=== PATIENT | female | born 1995 | race African-American/Black ===

== ENCOUNTER → 2017-06-05 | Outpatient (CLI) | payer OTHER ==
[2017-06-06 15:19] LABS: CHLAMYDIA DNA AMPLIFICATION NEGATIVE (NEGATIVE); GC DNA AMPLIFICATION NEGATIVE (NEGATIVE)
[2017-06-07 11:06] LABS: HEPATITIS B SURFACE ANTIGEN NEGATIVE (NEGATIVE)
[2017-06-07 11:12] LABS: HEPATITIS B CORE ANTIBODY IGM NEGATIVE (NEGATIVE)
[2017-06-07 11:12] LABS: HEPATITIS C VIRUS ABY INDEX 0.2 INDEX (<0.8)
[2017-06-07 11:13] LABS: HIV 1&2 SCREEN CENTAUR NEGATIVE (NEGATIVE)
[2017-06-07 11:14] LABS: HEPATITIS A ANTIBODY IGM NEGATIVE (NEGATIVE)
== END ==
LOC: M SMT 15:43
DX: Z11.3 Encounter for screening for infections with a predominantly sexual mode of transmission (principal)
CPT/HCPCS: 87340

== ENCOUNTER → 2018-04-08 | Outpatient (REF) | payer OTHER ==
[2018-04-08 18:24] LABS: APPEARANCE, URINE CLEAR (CLEAR); BACTERIA, URINE AUTO NEGATIVE (NEGATIVE); BILIRUBIN, URINE AUTO NEGATIVE (NEGATIVE); BLOOD, URINE BLOOD NEGATIVE (NEGATIVE); COLOR, URINE YELLOW (YELLOW); GLUCOSE, URINE (UA) AUTO NEGATIVE (NEGATIVE); KETONE, URINE AUTO NEGATIVE (NEGATIVE); LEUKOCYTE ESTERASE, URINE AUTO NEGATIVE (NEGATIVE); NITRITE, URINE AUTO NEGATIVE (NEGATIVE); PROTEIN, URINE AUTO NEGATIVE (NEGATIVE); RBC, URINE AUTO 2 /HPF (0-3); SPECIFIC GRAVITY URINE AUTO 1.011 (1.002-1.035); SQUAMOUS EPITHELIAL CELL UR AU 2 /HPF (0-6); UROBILINOGEN, URINE AUTO 0.2 mg/dL (0.0-2.0); WBC, URINE AUTO 1 /HPF (0-3)
== END ==
LOC: M LAB REF 16:58
PROVIDERS: ATTEND Physician Assistant
DX: R30.0 Dysuria (principal)

== ENCOUNTER → 2018-04-11 | Outpatient (REF) | payer OTHER | LOC: M LAB REF 13:22 | PROVIDERS: ATTEND Advanced Practice Midwife | DX: N93.0 Postcoital and contact bleeding (principal); Z12.4 Encounter for screening for malignant neoplasm of cervix ==

== ENCOUNTER → 2018-04-28 | Outpatient (CLI) | payer OTHER ==
[2018-04-28 17:35] LABS: BASO % 0.5 % (0.0-1.0); EOS # 0.1 10^3/uL (0.0-0.50); EOS % 1.1 % (0.0-3.0); HEMATOCRIT 37.3 % (36.0-47.0); HEMOGLOBIN 11.4 g/dl (12.0-15.5); LYMPH # 2.7 10^3/uL (1.5-6.5); MEAN CORPUSCULAR HEMOGLOBIN 25.1 pg (27.0-33.0); MEAN CORPUSCULAR HGB CONC 30.6 g/dl (32.0-36.5); MEAN CORPUSCULAR VOLUME 82.2 fl (80.0-96.0); MONO # 0.6 10^3/uL (0.0-0.8); MONO % 8.4 % (0.0-5.0); NEUTROPHILS % 53.9 % (36.0-66.0); PLATELET COUNT, AUTOMATED 320 10^3/uL (150-450); RED BLOOD COUNT 4.54 10^6/uL (4.00-5.40); WHITE BLOOD COUNT 7.4 10^3/uL (4.0-10.0)
[2018-04-28 18:16] LABS: ALBUMIN 3.9 GM/DL (3.2-5.2); ALT/SGPT 25 U/L (12-78); BILIRUBIN,TOTAL 0.2 MG/DL (0.2-1.0); BLOOD UREA NITROGEN 10 MG/DL (7-18); CALCIUM LEVEL 8.6 MG/DL (8.5-10.1); CARBON DIOXIDE LEVEL 26 MEQ/L (21-32); CHLORIDE LEVEL 106 MEQ/L (98-107); CHOLESTEROL LEVEL 136 MG/DL (<200); CHOLESTEROL RISK RATIO 2.385 (<5); CREATININE FOR GFR 0.78 MG/DL (0.55-1.30); FOLATE 14.1 NG/ML; FREE T4 0.84 NG/DL (0.76-1.46); GLOMERULAR FILTRATION RATE > 60.0 (>60); GLUCOSE, FASTING 79 MG/DL (70-100); HDL CHOLESTEROL 57 MG/DL (>40); LDL CHOLESTEROL 69 MG/DL (<100); NON-HDL-C 79 MG/DL; POTASSIUM SERUM 4.5 MEQ/L (3.5-5.1); SODIUM LEVEL 138 MEQ/L (136-145); THYROID STIMULATING HORMONE 0.992 uIU/ML (0.358-3.740); TOTAL PROTEIN 7.7 GM/DL (6.4-8.2); TRIGLYCERIDES LEVEL 52 MG/DL (<150)
[2018-04-28 19:12] LABS: VITAMIN B12 LEVEL 392 PG/ML
== END ==
LOC: M LRY 15:06
PROVIDERS: ATTEND Physician Assistant
DX: F45.8 Other somatoform disorders (principal); E66.8 Other obesity; Z13.220 Encounter for screening for lipoid disorders; Z13.0 Encounter for screening for diseases of the blood and blood-forming organs and certain disorders involving the immune mechanism

== ENCOUNTER → 2018-10-30 | Outpatient (REF) | payer OTHER ==
[2018-10-30 20:16] LABS: CHLAMYDIA DNA AMPLIFICATION NEGATIVE (NEGATIVE); GC DNA AMPLIFICATION NEGATIVE (NEGATIVE)
== END ==
LOC: M LAB REF 17:16
PROVIDERS: ATTEND Advanced Practice Midwife
DX: N76.0 Acute vaginitis (principal)

== ENCOUNTER → 2018-12-11 | Outpatient (CLI) | payer OTHER ==
--- NOTE | 2018-12-11 10:49 | REP ---
Lumbar spine eight views including lateral views in flexion and extension: There are no comparison studies. Vertebral body heights, interspacing alignment are normal. There is no spondylolysis. There is no spondylolisthesis. There is no listhesis on the lateral views in flexion or extension. The facets, pedicles and sacroiliac articulations are unremarkable. There is an IUD in the pelvic midline. Impression: Essentially negative lumbar spine. Electronically Signed by Monster Abdi MD 12/11/2018 10:41 A
[2018-12-11 12:27] LABS: BLOOD UREA NITROGEN 10 MG/DL (7-18); CALCIUM LEVEL 8.6 MG/DL (8.5-10.1); CARBON DIOXIDE LEVEL 28 MEQ/L (21-32); CHLORIDE LEVEL 108 MEQ/L (98-107); CREATININE FOR GFR 0.83 MG/DL (0.55-1.30); FREE T4 0.83 NG/DL (0.76-1.46); GLOMERULAR FILTRATION RATE > 60.0 (>60); GLUCOSE, FASTING 88 MG/DL (70-100); POTASSIUM SERUM 3.9 MEQ/L (3.5-5.1); SODIUM LEVEL 140 MEQ/L (136-145)
[2018-12-11 12:34] LABS: HEMOGLOBIN A1c 6.1 %
== END ==
LOC: M LRY 09:15
PROVIDERS: ATTEND Physician Assistant
DX: M54.5 Low back pain (principal); F45.8 Other somatoform disorders; G56.03 Carpal tunnel syndrome, bilateral upper limbs

== ENCOUNTER → 2019-02-13 | Outpatient (REF) | payer OTHER ==
[2019-02-13 19:33] LABS: CHLAMYDIA DNA AMPLIFICATION NEGATIVE (NEGATIVE); GC DNA AMPLIFICATION NEGATIVE (NEGATIVE)
== END ==
LOC: M SFHCLERA 11:23
PROVIDERS: ATTEND Nurse Practitioner Family
DX: Z20.2 Contact with and (suspected) exposure to infections with a predominantly sexual mode of transmission (principal)
CPT/HCPCS: 81002; 81025; 87086; 87661; 96372; G0463; J0696

== ENCOUNTER → 2019-03-06 | Outpatient (REF) | payer OTHER | LOC: M SFHCLERA 14:53 | PROVIDERS: ATTEND Nurse Practitioner Family | DX: J02.9 Acute pharyngitis, unspecified (principal) ==

== ENCOUNTER → 2019-05-14 | Outpatient (REF) | payer OTHER ==
[2019-05-14 20:06] LABS: CHLAMYDIA DNA AMPLIFICATION NEGATIVE (NEGATIVE); GC DNA AMPLIFICATION NEGATIVE (NEGATIVE)
== END ==
LOC: M SFHCLERA 13:01
PROVIDERS: ATTEND Nurse Practitioner Family
DX: N89.8 Other specified noninflammatory disorders of vagina (principal)
CPT/HCPCS: 81002; 81025; 87070; 87077; 87086; 87661; G0463

== ENCOUNTER → 2019-08-11 | Outpatient (REF) | payer OTHER ==
[2019-08-12 11:54] LABS: AMORPHOUS SEDIMENT SMALL (NEGATIVE); APPEARANCE, URINE HAZY (CLEAR); BACTERIA, URINE AUTO 1+ (NEGATIVE); BILIRUBIN, URINE AUTO NEGATIVE (NEGATIVE); BLOOD, URINE BLOOD NEGATIVE (NEGATIVE); COLOR, URINE YELLOW (YELLOW); GLUCOSE, URINE (UA) AUTO NEGATIVE (NEGATIVE); KETONE, URINE AUTO NEGATIVE (NEGATIVE); LEUKOCYTE ESTERASE, URINE AUTO NEGATIVE (NEGATIVE); MUCUS, URINE SMALL (NEGATIVE); NITRITE, URINE AUTO POSITIVE (NEGATIVE); PROTEIN, URINE AUTO NEGATIVE (NEGATIVE); RBC, URINE AUTO 0 /HPF (0-3); SPECIFIC GRAVITY URINE AUTO 1.012 (1.002-1.035); SQUAMOUS EPITHELIAL CELL UR AU 0 /HPF (0-6); UROBILINOGEN, URINE AUTO 0.2 mg/dL (0.0-2.0); WBC, URINE AUTO 2 /HPF (0-3)
[2019-08-12 13:21] LABS: CHLAMYDIA DNA AMPLIFICATION NEGATIVE (NEGATIVE); GC DNA AMPLIFICATION NEGATIVE (NEGATIVE)
== END ==
LOC: M SFHCWAGY 10:05
PROVIDERS: ATTEND Obstetrics & Gynecology
DX: R30.0 Dysuria (principal)

== ENCOUNTER → 2019-08-13 | Outpatient (CLI) | payer OTHER ==
--- NOTE | 2019-08-14 04:32 | REP ---
Clinical: Dysmenorrhea. Technique: Transabdominal pelvic ultrasound using curved array transducer. Findings: Normal anteverted uterus measures 11.7 x 3.6 x 5.6 cm. Endometrial complex measures 4 mm thickness. The right ovary appears normal and measures 2.7 x 2.2 x 3.2 cm. Left ovary is not visualized. No pelvic fluid or adnexal mass lesion. Impression: Normal uterus and right ovary. Left ovary not visualized.
== END ==
LOC: M WHC 14:57
PROVIDERS: ATTEND Obstetrics & Gynecology
DX: N94.6 Dysmenorrhea, unspecified (principal)

== ENCOUNTER → 2020-02-10 | Outpatient (REF) | payer OTHER ==
[2020-02-10 17:19] LABS: HEMATOCRIT 35.6 % (36.0-47.0); HEMOGLOBIN 10.8 g/dl (12.0-15.5); MEAN CORPUSCULAR HEMOGLOBIN 24.5 pg (27.0-33.0); MEAN CORPUSCULAR HGB CONC 30.3 g/dl (32.0-36.5); MEAN CORPUSCULAR VOLUME 80.9 fl (80.0-96.0); PLATELET COUNT, AUTOMATED 304 10^3/uL (150-450); WHITE BLOOD COUNT 7.3 10^3/uL (4.0-10.0)
[2020-02-10 18:16] LABS: HEPATITIS C VIRUS ABY INDEX 0.1 INDEX (<0.8); HIV 1&2 SCREEN CENTAUR NEGATIVE (NEGATIVE)
== END ==
LOC: M PLALAB 15:40
PROVIDERS: ATTEND Obstetrics & Gynecology
DX: O34.211 Maternal care for low transverse scar from previous cesarean delivery (principal); Z3A.12 12 weeks gestation of pregnancy

== ENCOUNTER → 2020-03-11 | Outpatient (CLI) | payer OTHER | LOC: M WHC 10:56 | PROVIDERS: ATTEND Obstetrics & Gynecology | DX: Z36.89 Encounter for other specified antenatal screening (principal); Z3A.16 16 weeks gestation of pregnancy; Z53.9 Procedure and treatment not carried out, unspecified reason ==

== ENCOUNTER → 2020-03-25 | Outpatient (CLI) | payer OTHER ==
--- NOTE | 2020-03-27 17:58 | REP ---
INDICATION: ANATOMY COMPARISON: None. TECHNIQUE: Transabdominal obstetrical ultrasound with color Doppler evaluation. FINDINGS: Examination demonstrates a single live intrauterine in cephalic presentation. motion is identified by technologist. Placenta is noted anterior and grade 1 without evidence for placenta previa or abruption. Amniotic fluid volume is normal. Cervix measures 3.0 cm in length and appears closed.. Gestational age by LMP 18 weeks 3 days with PRINCE 08/23/2020. Gestational age by current measurements 18 weeks 5 days with PRINCE 08/21/2020. FHR equals 155 beats per minute. BPD: 4.1 cm 18 weeks 2 days HC: 15.4 cm 18 weeks 3 days AC: 12.6 cm 18 weeks 1 day FL: 2.9 cm 18 weeks 6 days HL: 2.9 cm 19 weeks 3 days HC/AC: 1.22 Estimated weight 243 grams (50thpercentile). Anatomical assessment demonstrates normal structures including cranium, choroid plexus, cavum, cerebellum/posterior fossa, lungs, four-chamber heart/ventricular outflow tracts, diaphragm, stomach, cord insertion/three-vessel cord, kidneys/bladder, spine, and extremities. IMPRESSION: Single live intrauterine in cephalic presentation demonstrating appropriate estimated weight and growth. Limited evaluation of the facial features (nose/lips). Remainder of the anatomical assessment is complete and normal. <Electronically signed by Refugio Raines > 03/27/20 [id number]
== END ==
LOC: M WHC 13:36
PROVIDERS: ATTEND Obstetrics & Gynecology
DX: Z36.9 Encounter for antenatal screening, unspecified (principal); Z3A.18 18 weeks gestation of pregnancy

== ENCOUNTER → 2020-04-06 | Outpatient (CLI) | payer OTHER | LOC: M WHC 16:31 | PROVIDERS: ATTEND Obstetrics & Gynecology | DX: Z36.89 Encounter for other specified antenatal screening (principal); Z3A.20 20 weeks gestation of pregnancy ==

== ENCOUNTER → 2020-04-21 | Outpatient (CLI) | payer OTHER ==
--- NOTE | 2020-04-21 12:04 | REP ---
INDICATION: F/U ANATOMY. COMPARISON: Comparison study is from 25 March 2020.. TECHNIQUE: Transabdominal obstetric sonography. FINDINGS: Scanning through the gravid uterus demonstrates a viable single intrauterine gestation in cephalic lie. motion is observed and heart rate is recorded at 161 beats per minute. A anterior placenta is seen, grade 1, without evidence of placenta previa. Closed cervical length is measured at 3.7 cm transabdominally. No extrauterine abnormality is observed. Amniotic fluid is subjectively normal. nose and lips were visualized today and appear normal.. Biometry chart: BPD 4.9 cm, 20 weeks 6 days Head circumference 19.9 cm, 22 weeks 1 day Abdominal circumference 17.6 cm, 22 weeks 3 days Femur length 4.2 cm, 23 weeks 6 days Humeral length 3.9 cm, 23 weeks 4 days HC AC ratio normal 1.13 Cephalic index 0.66 (0.70-0.86) Estimated weight 542 g, 1 lb 3 oz, 73rd percentile for 22 weeks 2 days IMPRESSION: Viable single intrauterine gestation at 22 weeks 4 days by today's composite sonographic criteria. PRINCE by today's sonography August 21, 2020. No complication identified. Expected gestational age estimate based on prior sonography is 22 weeks 2 days. PRINCE by prior sonography August 23, 2020. In conjunction with the prior study, anatomic survey is felt to be complete. <Electronically signed by Edgardo Damon > 04/21/20 1200
== END ==
LOC: M WHC 10:10
PROVIDERS: ATTEND Obstetrics & Gynecology
DX: Z34.92 Encounter for supervision of normal pregnancy, unspecified, second trimester (principal); Z3A.22 22 weeks gestation of pregnancy

== ENCOUNTER → 2020-06-20 | Outpatient (REF) | payer OTHER ==
[2020-06-20 13:45] LABS: HEMATOCRIT 32.8 % (36.0-47.0); HEMOGLOBIN 10.1 g/dl (12.0-15.5); MEAN CORPUSCULAR HEMOGLOBIN 25.2 pg (27.0-33.0); MEAN CORPUSCULAR HGB CONC 30.8 g/dl (32.0-36.5); MEAN CORPUSCULAR VOLUME 81.8 fl (80.0-96.0); PLATELET COUNT, AUTOMATED 218 10^3/uL (150-450); RED BLOOD COUNT 4.01 10^6/uL (4.00-5.40); WHITE BLOOD COUNT 7.8 10^3/uL (4.0-10.0)
== END ==
LOC: M PLALAB 09:42
PROVIDERS: ATTEND Obstetrics & Gynecology
DX: O34.211 Maternal care for low transverse scar from previous cesarean delivery (principal)
CPT/HCPCS: 36415; 82950; 85027; 86850; 86900; 86901; G0463

== ENCOUNTER → 2020-06-24 | Outpatient (CLI) | payer SELFPAY | LOC: M LABSMTC 10:20 | PROVIDERS: ATTEND Family Medicine | DX: Z11.52 Encounter for screening for COVID-19 (principal) ==

== ENCOUNTER 2020-08-16 07:30 | Inpatient (IN) | payer OTHER ==
[~2020-08-16] VITALS: Ht 162.6 cm; Wt 107.5 kg
[2020-08-30] MEDS ORDERED: ceFAZolin SOD 2 GM in IV 1 EA IV ONE (06:20)
[2020-08-30] MEDS ORDERED: BICITRA 30ML SOLN UDC PO ONE ×2 (06:20→09:00)
[2020-08-30 06:21] VITALS: BP 102/69
[2020-08-30] MEDS ORDERED: PRENTAB9 PO (06:39)
[2020-08-30 07:07] LABS: HEMATOCRIT 29.7 % (36.0-47.0); HEMOGLOBIN 9.1 g/dl (12.0-15.5); MEAN CORPUSCULAR HEMOGLOBIN 23.9 pg (27.0-33.0); MEAN CORPUSCULAR HGB CONC 30.6 g/dl (32.0-36.5); MEAN CORPUSCULAR VOLUME 78.2 fl (80.0-96.0); PLATELET COUNT, AUTOMATED 268 10^3/uL (150-450); WHITE BLOOD COUNT 8.7 10^3/uL (4.0-10.0)
[2020-08-30] MEDS ORDERED: MORPHINE PRES-FREE INJ 10 MG/10 ML VIAL (J2274) As Ordered ONE (07:18)
[2020-08-30] MEDS ORDERED: OXYTOCIN 30 UNITS IN 0.9% NaCl 500ML IV BAG (J2590) As Ordered ONE ×2 (07:19→09:29)
[2020-08-30] MEDS ORDERED: NALBUPHINE HCL 10 MG/ML AMP (J2300) IV PRN (07:56)
[2020-08-30] MEDS ORDERED: ONDANSETRON 4MG/2ML VIAL IV PRN ×3 (07:56→09:20)
[2020-08-30] MEDS ORDERED: NALOXONE INJ 0.4MG/1ML VIAL (J2310 PER 1MG) IV PRN ×2 (07:56)
[2020-08-30] MEDS ORDERED: METOCLOPRAMIDE INJ 10MG/2ML VIAL (J2765 PER 1) IV PRN ×2 (07:56→09:20)
[2020-08-30] MEDS ORDERED: LACTATED RINGER'S 1000 ML IV STA (07:59)
[2020-08-30] MEDS ORDERED: LR 1,000 ML IV SCH ×3 (08:00→09:20)
[2020-08-30] MEDS ORDERED: dexameTHASONE 4 MG/ML 1ML VIAL (J1100 PER 1MG) As Ordered ONE (08:17)
[2020-08-30] MEDS ORDERED: ONDANSETRON 4MG/2ML VIAL As Ordered ONE (08:17)
[2020-08-30] MEDS ORDERED: KETOROLAC 60MG 2ML VIAL As Ordered ONE (08:18)
[2020-08-30] MEDS ORDERED: PHENYLephrine 500MCG 5ML (100MCG/ML) SYRINGE As Ordered ONE (08:40)
[2020-08-30] MEDS ORDERED: PERCOCET 5MG/325MG TAB PO PRN (09:20)
[2020-08-30] MEDS ORDERED: SIMETHICONE 80MG CHEW TAB PO PRN (09:20)
[2020-08-30] MEDS ORDERED: MEASLES,MUMPS,RUBELLA VACCINE INJ (MMR-II) (90707) SC SCH (09:20)
[2020-08-30] MEDS ORDERED: RHOGAM 300 MCG (1500 IU) INJ (J2790) IM SCH (09:20)
[2020-08-30] MEDS ORDERED: OXYTOCIN DRIP 30 UNITS in IV 1 EA IV SCH (09:20)
[2020-08-30] MEDS ORDERED: DOCUSATE SODIUM 100MG CAPSULE PO PRN (09:20)
[2020-08-30] MEDS ORDERED: fentaNYL 100 MCG/2 ML INJECTION (J3010) IV PRN (09:20)
--- NOTE | 2020-08-30 09:24 | ROOPDOC ---
[facility] Report Of Operation Report of Operation DATE OF PROCEDURE: 08/30/20 Report of operation Preoperative diagnosis:41 weeks, prior section x 2 Postoperative diagnosis: same Procedure: Repeat low transverse section. Surgeon: Ro Wagner M.D. Asst.: Deedee Burrell MD EBL: 500 ml. Urine output: 100 mL's. Findings: 7 lbs. 15 oz. male , 's 9 and 9 g Dense adhesions of uterus to anterior abdominal wall. Omental adhesions to uterus Operative summary: Patient states the operative room where spinal anesthesia induced. She is prepped draped sterile fashion in the supine position. A Qureshi catheter was placed. A Pfannenstiel skin incision was made with scalpel. Fascia was incised and extended bilaterally. Dense adhesions of uterus to the anterior abdominal wall were taken down sharply. The peritoneal cavity was entered. A bladder flap was created. A curvilinear incision was made in lower uterine segment until Clear fluid was noted. The incision was extended manually. The infant was delivered from the vertex position without difficulty. Cord was doubly clamped and cut. The infant was handed waiting nurses. The placenta was expressed. Uterus was closed with O-Vicryl in a running locked fashion. A second imbricating layer of Vicryl was placed. Peritoneum was closed with 2-0 Vicryl a running fashion. Fascia was closed with 0 Vicryl in running fashion. Skin was closed 4-0 Monocryl subcuticular sutures. Sponge, instrument and needle counts were correct. Deedee Burrell MD, assisted with all aspects of the procedure. She helped close each layer of the incision and deliver the fetus. RO WAGNER MD Aug 30, 2020 09:24
[2020-08-30 10:45] VITALS: BP 96/52
[2020-08-30 11:15] VITALS: BP 99/59
[2020-08-30] MEDS: diphenhydrAMINE 50MG/ML VIAL (J1200) IV PRN ×2 (11:16→16:06)
[2020-08-30 12:15] VITALS: BP 102/59
[2020-08-30] MEDS: KETOROLAC 30 MG/ML 1ML VIAL IV SCH ×2 (15:01→20:54)
[2020-08-30 17:55] VITALS: BP 124/58
[2020-08-30 22:00] VITALS: BP 116/59
[2020-08-30] MEDS: PERCOCET 5MG/325MG TAB PO PRN (22:27)
[2020-08-31 02:00] VITALS: BP 102/55
[2020-08-31] MEDS: KETOROLAC 30 MG/ML 1ML VIAL IV SCH (02:45)
[2020-08-31 06:00] VITALS: BP 117/56
[2020-08-31 06:59] LABS: HEMATOCRIT 25.9 % (36.0-47.0); HEMOGLOBIN 7.9 g/dl (12.0-15.5); MEAN CORPUSCULAR HGB CONC 30.5 g/dl (32.0-36.5); MEAN CORPUSCULAR VOLUME 78.7 fl (80.0-96.0); PLATELET COUNT, AUTOMATED 233 10^3/uL (150-450); RED BLOOD COUNT 3.29 10^6/uL (4.00-5.40); WHITE BLOOD COUNT 11.6 10^3/uL (4.0-10.0)
[2020-08-31] MEDS: PERCOCET 5MG/325MG TAB PO PRN ×2 (09:28→15:36)
[2020-08-31] MEDS: PRENATAL VITAMINS CHEWABLE TABLET PO SCH (09:28)
[2020-08-31 10:33] VITALS: BP 107/55
--- NOTE | 2020-08-31 10:33 | IPNPDOC ---
Progress Note Date of Service: Aug 31, 2020 Day#: 1 Progress Note PPD/POD 1 SUBJECT: Cricket is a 25yo [id number] s/p uncomplicated RLTCS on 08/30 for history of 2 prior sections, doing well /post-op day #1. She has been ambulating, voiding spontaneously without issue and tolerating regular diet. Breast feeding without issue. Reports lochia is like a normal period. Pain well controlled. No f/c/n/v/CP/SOB. OBJECTIVE: VITAL SIGNS: Within normal limits, afebrile. Alert and oriented times three. Abdomen: Fundus firm at U-2. Obese. Soft, appropriately tender to palpation. Optifoam dressing overlies pfannenstiel incision and is clean/dry/intact Extremities: no pain with palpation of calves Labs: pre-op H/H: 9.1/29.7 post-op H/H: 7.9/25.9 ASSESSMENT: Cricket is a 25yo [id number] s/p uncomplicated RLTCS on 08/30 for history of 2 prior sections, doing well /post-op day #1. Vitals within normal limits, afebrile, hemodynamically stable with no evidence of infection. PLAN: 1. Routine /post-op care 2. Percocet and Motrin for pain. Colace for bowel regimen. Iron for anemia. 3. Encourage breast feeding and ambulation. 4. Regular diet 5. Possible discharge tomorrow if meeting all milestones Deedee Burrell MD VS, I&O, 24H, Fishbone Vital Signs/I&O Vital Signs Date Time Temp Pulse Resp B/P (MAP) Pulse Ox O2 Delivery O2 Flow Rate FiO2 08/31/20 09:28 16 Room Air 08/31/20 06:00 98.7 64 117/56 (76) 100 I&O- Last 24 Hours up to 6 AM 08/31/20 05:59 Intake Total 2800 ml Output Total 1825 ml Balance 975 ml Laboratory Data 24H LABS Laboratory Tests 2 08/31/20 06:33: Nucleated Red Blood Cells % (auto) 0.0 CBC/BMP Laboratory Tests 08/31/20 06:33 Deedee Burrell MD Aug 31, 2020 10:33
[2020-08-31] MEDS: IBUPROFEN 800 MG TAB PO SCH ×2 (11:26→18:02)
[2020-08-31] MEDS: FERROUS SULFATE 325MG TAB PO SCH (11:26)
[2020-08-31 14:00] VITALS: BP 127/67
[2020-08-31 17:49] VITALS: BP 116/55
[2020-08-31 22:00] VITALS: BP 118/58
[2020-09-01] MEDS: PERCOCET 5MG/325MG TAB PO PRN ×2 (01:54→09:21)
[2020-09-01 02:00] VITALS: BP 125/58
[2020-09-01] MEDS: IBUPROFEN 800 MG TAB PO SCH ×2 (03:15→11:02)
[2020-09-01 06:00] VITALS: BP 107/57
[2020-09-01] MEDS ORDERED: OXYC1TAB23 PO (06:35)
[2020-09-01] MEDS ORDERED: IBUP-1022 PO (06:36)
--- NOTE | 2020-09-01 06:41 | DS.PDOC ---
Discharge Summary General Date of Admission Aug 30, 2020 at 05:55 Date of Discharge Sep 01, 2020 Discharge Summary PROCEDURES PERFORMED DURING STAY: section. ADMITTING DIAGNOSES: 1. 41 weeks prior x2. DISCHARGE DIAGNOSES: 1. Same. COMPLICATIONS/CHIEF COMPLAINT: Previous Section. HISTORY OF PRESENT ILLNESS: 25-year-old G3, P2 female at 41 weeks gestation presents for repeat section. HOSPITAL COURSE: . 25-year-old G3, P2 female at 41 weeks gestation presents for repeat section. She has a history of 2 prior sections. On August 30, 2020 she underwent repeat low-transverse section. There were no complications. Her postoperative course was unremarkable. She had adequate return of bladder and bowel function. She was deemed stable for discharge on postoperative day #2. DISCHARGE MEDICATIONS: Please see below. ALLERGIES: Please see below. PHYSICAL EXAMINATION ON DISCHARGE: VITAL SIGNS: Please see below. GENERAL: No apparent distress HEENT: NCAT NECK: Within normal limits CARDIOVASCULAR EXAMINATION: RRR RESPIRATORY EXAMINATION: Clear to auscultation ABDOMINAL EXAMINATION: Nontender, fundus firm, dressing clean dry intact EXTREMITIES: Nontender LABORATORY DATA: Please see below. PROGNOSIS: Good ACTIVITY: As tolerated DIET: Regular DISCHARGE PLAN: DISCHARGE INSTRUCTIONS: 1. Discharge home today. 2. Instructions reviewed 3. Pain management ordered DISCHARGE CONDITION: Stable. TIME SPENT ON DISCHARGE: Greater than 10 minutes. Vital Signs/I&Os Vital Signs Date Time Temp Pulse Resp B/P (MAP) Pulse Ox O2 Delivery O2 Flow Rate FiO2 09/01/20 06:00 98.0 69 18 107/57 (74) 100 Room Air I&O- Last 24 Hours up to 6 AM 09/01/20 05:59 Intake Total 200 ml Balance 200 ml Discharge Medications Scheduled Ibuprofen (Ibuprofen) 600 Mg Tablet, 1 TAB PO TID for pain with food No.137/Iron/Folic Acd ( Vitamin Tablet) 1 Each Tablet, 1 TAB PO DAILY, (Reported) Scheduled PRN Oxycodone HCl/Acetaminophen (Oxycodone-Acetaminophen 5-325) 1 Each Tablet, 1 TAB PO TIDP PRN for pain Allergies Coded Allergies: No Known Allergies (Unverified , 08/30/20) RO WAGNER MD Sep 01, 2020 06:41
[2020-09-01] MEDS: FERROUS SULFATE 325MG TAB PO SCH (07:57)
[2020-09-01] MEDS: PRENATAL VITAMINS CHEWABLE TABLET PO SCH (07:57)
[2020-09-01 09:51] VITALS: BP 107/57
== END 2020-09-01 13:45 | disposition home or self-care (01) | DRG 773 ==
LOC: M LDI 08-30 05:55 → M OBS 08-30 10:30
PROVIDERS: ADMIT Specialist; ATTEND Specialist
PROC: 10D00Z1 Extraction of Products of Conception, Low, Open Approach (ICD-10-PCS; principal; 2020-08-30 07:30)
DX: O34.211 Maternal care for low transverse scar from previous cesarean delivery (principal); Z37.0 Single live birth; Z3A.41 41 weeks gestation of pregnancy; O48.0 Post-term pregnancy

== ENCOUNTER → 2020-08-25 | Outpatient (CLI) | payer OTHER | LOC: M LABSMTC 09:39 | PROVIDERS: ATTEND Anesthesiology | DX: Z01.812 Encounter for preprocedural laboratory examination (principal) ==

== ENCOUNTER → 2020-11-01 | Outpatient (CLI) | payer OTHER ==
[~2020-11-01] MED LIST: IBUP-1022 PO; OXYC1TAB23 PO; PRENTAB9 PO
--- NOTE | 2020-11-02 08:11 | REP ---
INDICATION: N63.0 BREAST MASS/RIGHT. Lump in the right breast for 1 month. 11 o'clock position. COMPARISON: None. TECHNIQUE: Targeted right breast sonography. FINDINGS: Targeted right breast sonography is performed in the area the palpable lump at 11 o'clock. Fairly homogeneous fibroglandular background echotexture is seen. No cyst, mass, or acoustic shadowing is appreciated. IMPRESSION: BI-RADS category 1-findings. Clinical follow-up is advised. <Electronically signed by Edgardo Damon > 11/02/20 [id number]
== END ==
LOC: M WHC 13:36
PROVIDERS: ATTEND Specialist
DX: N63.0 Unspecified lump in unspecified breast (principal)

== ENCOUNTER → 2022-01-03 | Outpatient (CLI) | payer OTHER ==
[2022-01-03 15:50] LABS: BASO % 0.3 % (0.0-1.0); EOS # 0.1 10^3/uL (0.0-0.5); EOS % 0.8 % (0.0-3.0); HEMATOCRIT 33.7 % (36.0-47.0); HEMOGLOBIN 10.2 g/dl (12.0-15.5); LYMPH # 2.5 10^3/uL (1.5-5.0); LYMPH % 41.1 % (24.0-44.0); MEAN CORPUSCULAR HEMOGLOBIN 24.9 pg (27.0-33.0); MEAN CORPUSCULAR HGB CONC 30.3 g/dl (32.0-36.5); MEAN CORPUSCULAR VOLUME 82.4 fl (80.0-96.0); MONO # 0.4 10^3/uL (0.0-0.8); MONO % 6.7 % (2.0-8.0); NEUTROPHILS % 50.9 % (36.0-66.0); PLATELET COUNT, AUTOMATED 323 10^3/uL (150-450); RED BLOOD COUNT 4.09 10^6/uL (4.00-5.40)
[2022-01-03 16:45] LABS: ALBUMIN 3.9 GM/DL (3.2-5.2); ALT/SGPT 16 U/L (12-78); BILIRUBIN,TOTAL 0.3 MG/DL (0.2-1.0); BLOOD UREA NITROGEN 11 MG/DL (7-18); CALCIUM LEVEL 9.3 MG/DL (8.5-10.1); CARBON DIOXIDE LEVEL 25 MEQ/L (21-32); CHLORIDE LEVEL 110 MEQ/L (98-107); CHOLESTEROL LEVEL 149 MG/DL (<200); CHOLESTEROL RISK RATIO 2.013 (<5); CREATININE FOR GFR 0.81 MG/DL (0.55-1.30); FREE T4 1.04 NG/DL (0.76-1.46); GLOMERULAR FILTRATION RATE > 60.0 (>60); GLUCOSE, FASTING 81 MG/DL (70-100); HDL CHOLESTEROL 74 MG/DL (>40); IRON (FE) 60 UG/DL (50-170); LDL CHOLESTEROL 69 MG/DL (<100); NON-HDL-C 75 MG/DL; PERCENT SATURATION 14.3 % (13.2-45.0); POTASSIUM SERUM 4.6 MEQ/L (3.5-5.1); SODIUM LEVEL 140 MEQ/L (136-145); THYROID STIMULATING HORMONE 0.648 uIU/ML (0.358-3.740); TOTAL IRON BINDING CAPACITY 419 UG/DL (250-450); TOTAL PROTEIN 7.7 GM/DL (6.4-8.2); TRIGLYCERIDES LEVEL 30 MG/DL (<150)
== END ==
LOC: M PLALAB 12:07
PROVIDERS: ATTEND Nurse Practitioner Adult Health
DX: Z13.220 Encounter for screening for lipoid disorders (principal)